=== PATIENT | female | born 1945 | race Caucasian/White ===

== ENCOUNTER 2017-08-18 09:52 | Emergency (ER) | payer OTHER ==
[~2017-08-18] VITALS: Ht 160 cm; Wt 69.9 kg
[~2017-08-18 09:52] MED LIST: FENOFIBRATE50 MG; HYZAAR 100-251 UDTAB; LEVAQUIN500 MG PO; LOPERAMIDE2 M1 PO; NABUMETONE750 MG PO; NORVASC2.5 M1; ORPH100T PO; PERCOCET 10-3251 TAB; PRILOSEC20 MG PO; TOPROL XL100 M1
[2017-08-18] MEDS ORDERED: HYDROXYCHLOROQUINE (10:25)
[2017-08-18] MEDS ORDERED: TRESIBA FL100 UNIT/1 (10:28)
[2017-08-18] MEDS ORDERED: NOVOLOG100 UNIT/1 (10:28)
== END 2017-08-19 08:35 | disposition left against medical advice (07) ==
LOC: ER 09:52
DX: K57.32 Diverticulitis of large intestine without perforation or abscess without bleeding (principal); R10.32 Left lower quadrant pain; M79.652 Pain in left thigh; R60.0 Localized edema